=== PATIENT | male | born 1950 | race Caucasian/White ===

== ENCOUNTER 2019-10-15 19:55 | Emergency (ER) | payer OTHER, SELFPAY ==
[2019-10-15 20:02] VITALS: BP 152/89; PULSE 94; RESP 20; TEMP 37.6; O2SAT 99
--- NOTE | 2019-10-15 20:11 | ED.GENADULT ---
HPI - General Adult General Chief complaint: Extremity Injury, Lower Stated complaint: left foot injury Time Seen by Provider: 10/15/19 20:07 Source: patient and RN notes reviewed Mode of arrival: ambulatory Limitations: no limitations History of Present Illness HPI narrative: Patient presents today complaining of pain, redness, and swelling to the left foot. Symptoms began 4 days ago and have been worsening since onset. Patient is recently changed his diet and is now walking 2 to 3 miles a day. He currently rates his pain 8/10, which does increase with weightbearing. He has been taking 600 mg ibuprofen. Last dose was 1 hour prior to arrival. This is prior riding mild [place]. Denies numbness or tingling in the leg or foot. MD complaint: Left foot pain and swelling Related Data Home Medications Medication Instructions Recorded Confirmed lisinopril-hydrochlorothiazide 1 tablet PO DAILY 10/15/19 10/15/19 Allergies Allergy/AdvReac Type Severity Reaction Status Date / Time No Known Allergies Allergy Verified 10/15/19 20:09 Review of Systems Review of Systems: Narrative: CONSTITUTIONAL: Denies body aches, fever, chills, or sweats. EYES: Denies visual changes, redness, or discharge. ENT: Denies rhinorrhea, congestion, sore throat, or otalgia. CARDIOVASCULAR: Denies chest pain, palpitations, or edema. RESPIRATORY: Denies cough or dyspnea. GASTROINTESTINAL: Denies abdominal pain, nausea, vomiting, or diarrhea. GENITOURINARY: Denies dysuria or hematuria. SKIN: Denies rash, itching, or wounds. MUSCULOSKELETAL: Denies back pain, or myalgia. + Left foot redness, pain, swelling NEUROLOGIC: Denies headache, numbness, tingling, or weakness. PSYCH: Denies depression or anxiety. PMFSH Comments At time of signature, I have reviewed and agree with nursing past medical, surgical, social and family history unless otherwise noted. Please see nursing chart for further information. There is no relevant family history pertinent to the presenting complaint Exam Narrative: Exam Narrative: GENERAL: Well-appearing, well-nourished, and in no acute distress. HEAD: Normocephalic, atraumatic. EYES: EOMI. No redness or drainage. Conjunctivae normal. ENT: Mucous membranes pink and moist. NECK: Normal AROM. CHEST: No respiratory distress. EXTREMITIES:Tenderness to the base of the left MTP with moderate edema and erythema to the dorsum of the foot. Distal sensation intact. Capillary refill normal. Pedal pulse normal. Full AROM of the toes and ankle. SKIN: Warm, dry, no rash. Capillary refill normal. Normal skin turgor. NEURO: No focal deficits. Alert and oriented x3. Gait steady. PSYCH: Normal affect. No signs of depression or anxiety. Course Vital Signs Vital signs: Vital Signs Temperature 99.7 F H 10/15/19 20:02 Pulse Rate 94 10/15/19 20:02 Respiratory Rate 20 10/15/19 20:02 Blood Pressure 152/89 H 10/15/19 20:02 Pulse Oximetry 99 10/15/19 20:02 Temperature 99.7 F H 10/15/19 20:02 Pulse Rate 94 10/15/19 20:02 Respiratory Rate 20 10/15/19 20:02 Blood Pressure 152/89 H 10/15/19 20:02 Pulse Oximetry 99 10/15/19 20:02 Reviewed. Pt has been instructed to follow up with his PCP regarding his elevated blood pressure today. Medical Decision Making Differential Diagnosis Differential Diagnosis: Cellulitis, foot sprain, foreign body, gout Vital Signs Vital Signs: Vital Signs Temperature 99.7 F H 10/15/19 20:02 Pulse Rate 94 10/15/19 20:02 Respiratory Rate 20 10/15/19 20:02 Blood Pressure 152/89 H 10/15/19 20:02 Pulse Oximetry 99 10/15/19 20:02 Temperature 99.7 F H 10/15/19 20:02 Pulse Rate 94 10/15/19 20:02 Respiratory Rate 20 10/15/19 20:02 Blood Pressure 152/89 H 10/15/19 20:02 Pulse Oximetry 99 10/15/19 20:02 Critical Care Time Critical Care Time Critical Care Time: No Discharge Plan Discharge Clinical Impression: Acute gout of left foot Pa
== END 2019-10-15 20:15 | disposition home or self-care (01) ==
PROVIDERS: Emergency Provider Nurse Practitioner
DX: M10.9 Gout, unspecified (principal); E78.00 Pure hypercholesterolemia, unspecified; I10 Essential (primary) hypertension
CPT/HCPCS: 99213; G0463

== ENCOUNTER 2020-07-09 09:00 | Emergency (ER) | payer OTHER, SELFPAY ==
[2020-07-09 09:04] VITALS: BP 151/72; PULSE 67; RESP 20; TEMP 36.8; O2SAT 98
--- NOTE | 2020-07-09 09:07 | ED.EYEPROB ---
HPI - Eye Problem General Chief complaint: Eye Problems Stated complaint: right eye pain Time Seen by Provider: 07/09/20 09:12 Source: patient and RN notes reviewed History of Present Illness HPI Narrative: Patient is a 69-year-old male who presents the urgent care with complaints of right eye pain and slight blurriness. Patient states that he was sitting outside at a hotel out of town on Wednesday evening and believes something blew into his eye. Patient states it bothered him all day on Wednesday while he was hunting. Patient states that he has been using contact drops in the eyes since the incident last Wednesday. Currently denies of any pain but states that he believes there is still something at the bottom of the eye. Patient denies of any known trauma or injury to the eye. No other acute complaints. No acute distress noted. Patient aware of the plan of care. Some parts of this dictation were generated by voice recognition software and may contain typographical and/or grammatical inaccuracies. Related Data Home Medications Medication Instructions Recorded Confirmed lisinopril-hydrochlorothiazide 1 tablet PO DAILY 10/15/19 10/15/19 Allergies Allergy/AdvReac Type Severity Reaction Status Date / Time No Known Allergies Allergy Verified 07/09/20 09:20 Review of Systems Review of Systems: Narrative: CONSTITUTIONAL: Denies fever, chills, or sweats. EYES: Reports of slight blurriness in the feeling of something in the right eye . ENT: Denies rhinorrhea, congestion, sore throat, or otalgia. CARDIOVASCULAR: Denies chest pain, palpitations, or edema. RESPIRATORY: Denies cough or dyspnea. GASTROINTESTINAL: Denies abdominal pain, nausea, vomiting, or diarrhea. GENITOURINARY: Denies dysuria or hematuria. SKIN: Denies rash or itching. MUSCULOSKELETAL: Denies back pain, joint pain, or myalgia. NEUROLOGIC: Denies headache, numbness, or weakness. All other systems reviewed are negative, except as documented in HPI. PMFSH Comments At the time of my signature, I reviewed and agree with the nursing past medical, surgical, social, and family history. There is no relevant family history pertinent to the patient complaint. Exam Narrative: Exam Narrative: GENERAL: This is a well-nourished, well-developed patient, in no apparent distress. HEAD: normocephalic, atraumatic. EYES: PERRL. Left sclera clear/white. Vision is grossly intact. No obvious corneal abrasion or foreign object to the naked eye?to the right eye. Mild injected conjunctivo with slight erythema to the right sclera EARS: External ears normal NOSE: External nose normal with no obvious nasal discharge, nares without redness, no rhinorrhea. THROAT: Mucous membranes moist NECK: Neck supple SKIN: warm, intact with no suspicious lesions or rash, good texture and turgor. NEURO: awake, alert, and oriented to person, place and time. There were no obvious focal neurologic abnormalities. EXTREMITIES: No clubbing, cyanosis, or edema. Course Vital Signs Vital signs: Vital Signs Temperature 98.2 F 07/09/20 09:04 Pulse Rate 67 07/09/20 09:04 Respiratory Rate 20 07/09/20 09:04 Blood Pressure 151/72 H 07/09/20 09:04 Pulse Oximetry 98 07/09/20 09:04 Temperature 98.2 F 07/09/20 09:04 Pulse Rate 67 07/09/20 09:04 Respiratory Rate 20 07/09/20 09:04 Blood Pressure 151/72 H 07/09/20 09:04 Pulse Oximetry 98 07/09/20 09:04 Reviewed?patient is informed that they may have pre-hypertension or hypertension based on a blood pressure reading in the department. I recommend the patient call the primary care provider listed on their discharge instructions or a physician of their choice this week to arrange follow-up for further evaluation of possible pre-hypertension or hypertension. Procedures FB Removal Eye Foreign Body #1: Location: eye (R) Topical anesthetic used: tetracaine Evidence of corneal penetration: No Technique: eye wash b
== END 2020-07-09 09:40 | disposition home or self-care (01) ==
PROVIDERS: Emergency Provider Nurse Practitioner Family; PCP Internal Medicine
DX: H57.11 Ocular pain, right eye (principal); E78.00 Pure hypercholesterolemia, unspecified; I10 Essential (primary) hypertension; Z96.641 Presence of right artificial hip joint
CPT/HCPCS: 99212; A9270; G0463